=== PATIENT | female | born 1965 | race Caucasian/White ===

== ENCOUNTER 2024-07-05 14:39 | Outpatient (CLI) | payer MEDICAID | END 2024-07-05 23:59 | disposition home or self-care (01) | LOC: MRI02 14:39 | PROVIDERS: ATTEND Physician Assistant Surgical | DX: M17.12 Unilateral primary osteoarthritis, left knee (principal); M25.462 Effusion, left knee; M25.562 Pain in left knee | CPT/HCPCS: 73721 ==

== ENCOUNTER → 2025-07-11 | Outpatient (CLI) | payer MEDICAID ==
--- NOTE | 2025-07-11 12:25 | RADIOLOGY REPORT ---
Indication: NICOTINE DEPENDENCE Technique: CT axial images of the chest are obtained without contrast. Coronal and sagittal reformats were obtained. Radiation Dose Information: CTDI volume is 3.7 mGy. Dose-length product is 151 mGy*cm Comparison: None FINDINGS: Trachea patent. No pneumothorax. No pulmonary airspace consolidation. Heart normal in size. Coronary artery calcification disease. Aortic atherosclerotic disease. 3 mm left upper lobe solid nodule, axial image 79 of 284. No supraclavicular or axillary lymphadenopathy. Bilateral thyroid nodules up to 1.5 cm. Cholecystectomy. IMPRESSION: A 3 mm left upper lobe solid nodule, lung rads 2. Recommend follow-up low-dose CT in 1 year. Coronary artery calcification disease. Bilateral thyroid nodules. Recommend thyroid ultrasound to further evaluate.
== END | disposition home or self-care (01) ==
LOC: RAD 11:23
PROVIDERS: ATTEND Physician Assistant
DX: Z12.2 Encounter for screening for malignant neoplasm of respiratory organs (principal); R91.1 Solitary pulmonary nodule; I25.10 Atherosclerotic heart disease of native coronary artery without angina pectoris; F17.210 Nicotine dependence, cigarettes, uncomplicated; I70.0 Atherosclerosis of aorta; E04.2 Nontoxic multinodular goiter
CPT/HCPCS: 71271